=== PATIENT | male | born 1970 | race Caucasian/White ===

== ENCOUNTER 2017-10-27 14:39 | Emergency (ER) | payer BC ==
[~2017-10-27] VITALS: Ht 188 cm; Wt 106.8 kg
[2017-10-27 14:47] VITALS: Ht 188 cm; Wt 106.8 kg
[2017-10-27 16:11] VITALS: BP 149/94
== END 2017-10-27 16:11 | disposition home or self-care (01) ==
LOC: ED 14:39
DX: K13.0 Diseases of lips (principal); G89.29 Other chronic pain; M54.9 Dorsalgia, unspecified; Z88.5 Allergy status to narcotic agent